=== PATIENT | male | born 1995 | race Caucasian/White ===

== ENCOUNTER 2018-10-24 12:03 | Emergency (ER) | payer BC, OTHER ==
[~2018-10-24] VITALS: Ht 175.3 cm; Wt 78.0 kg
[2018-10-24 12:10] VITALS: BP 129/86
--- NOTE | 2018-10-24 12:14 | NUR ---
PATIENT AMBULATED TO BED 4 AT THIS TIME.
--- NOTE | 2018-10-24 12:14 | NUR ---
BIB SELF. AAO X 4 C/O DIZZINESS SINCE TUESDAY OFF/ON. PT DENIES NO NAUSEA/VOMITING. FEVER ON TUESDAY.PERRLA BRISK 3 MM. EQUAL ASHWINI STRENGTH TO UPPER AND LOWER EXTREMITIES. STEADY GAIT. ER TO EVALUATE PT.
--- NOTE | 2018-10-24 12:22 | NUR ---
DR VARGAS AT BEDSIDE FOR PT EVALUATION
[2018-10-24] MEDS ORDERED: CLINDAMYCIN 150 MG CAP PO ONE (12:55)
[2018-10-24] MEDS ORDERED: predniSONE 20 MG TAB PO ONE (12:55)
[2018-10-24] MEDS ORDERED: hydrOXYzine HCL 25 MG TAB PO ONE (12:55)
[2018-10-24 14:13] VITALS: BP 125/84
--- NOTE | 2018-10-24 14:13 | NUR ---
Patient discharged with v/s stable. Written and verbal after care instructions given and explained. Patient alert, oriented and verbalized understanding of instructions. Ambulatory with steady gait. All questions addressed prior to discharge. ID band removed. Patient advised to follow up with PMD. Rx of Azithromycin, Motrin given. Patient educated on indication of medication including possible reaction and side effects. Opportunity to ask questions provided and answered.
[2018-10-24 14:23] LABS: BARBITURATE, URINE NEGATIVE ng/ml (NEG <=200); BENZODIAZEPINE, URINE NEGATIVE ng/mL (NEG <=200); CANNABINOID, URINE NEGATIVE ng/mL (NEG <=50); COCAINE, URINE POSITIVE ng/mL (NEG <=300); OPIATE, URINE NEGATIVE ng/mL (NEG <=2000); PHENCYCLIDINE SCREEN,URINE NEGATIVE ng/mL (NEG <=25)
== END 2018-10-24 14:13 | disposition home or self-care (01) ==
LOC: MED 12:03
DX: J02.9 Acute pharyngitis, unspecified (principal); F41.9 Anxiety disorder, unspecified; F14.90 Cocaine use, unspecified, uncomplicated; M54.9 Dorsalgia, unspecified
CPT/HCPCS: 80305; 99284; J7512

== ENCOUNTER 2019-01-08 21:58 | Emergency (ER) | payer BC ==
[~2019-01-08] VITALS: Ht 175.3 cm; Wt 77.1 kg
[2019-01-08 22:00] VITALS: BP 132/70
--- NOTE | 2019-01-08 22:00 | NUR ---
TO BED # 09 AMBULATORY
--- NOTE | 2019-01-08 22:12 | NUR ---
PT C/O LT EAR PAIN STARTING AT 1600 TODAY. WOKE UP FROM [facility] WITH DROPS OF BLOOD ON PILLOW. PT FELT POPPING SENSATION IN LT EAR BEFORE BLEEDING. PT STATES HE PUT A Q-TIP IN THE EAR PRIOR TO BLEEDING. EAR PAIN 6/10 AT THIS TIME. PT TOOK NORCO AT 2000 TODAY FOR PAIN. RESPIRATIONS EVEN AND UNLABORED. IN BED WITH MOTHER AT BEDSIDE, CALM PLEASANT. MEDHX: DENIES ALLERGIES: DENIES
--- NOTE | 2019-01-08 22:14 | NUR ---
DR RAMIREZ AT BEDSIDE
[2019-01-08] MEDS ORDERED: AMOXICILLIN 500 MG CAP PO ONE (22:20)
[2019-01-08] MEDS ORDERED: IBUPROFEN 800 MG TAB PO ONE (22:20)
--- NOTE | 2019-01-08 22:29 | NUR ---
Patient discharged with v/s stable. Written and verbal after care instructions given and explained. Patient alert, oriented and verbalized understanding of instructions. Ambulatory with to home. All questions addressed prior to discharge. ID band removed. Patient advised to follow up with PMD. Rx of AUGMENTIN AND IBURPROFEN given. Patient educated on indication of medication including possible reaction and side effects. Opportunity to ask questions provided and answered.
[2019-01-08 22:30] VITALS: BP 132/70
== END 2019-01-08 22:29 | disposition home or self-care (01) ==
LOC: MED 21:58
DX: H72.92 Unspecified perforation of tympanic membrane, left ear (principal); F12.90 Cannabis use, unspecified, uncomplicated
CPT/HCPCS: 99283